=== PATIENT | female | born 1965 ===

== ENCOUNTER 2016-09-27 07:26 | Day surgery (SDC) | payer OTHER ==
[2016-09-25 13:11] VITALS: BMI 31.2
[2016-09-27] MEDS ORDERED: Propofol 10 mg/ml Inj (20 ML) ONE (09:03)
[2016-09-27] MEDS ORDERED: Lactated Ringer's 500 ML IV ONE ×2 (09:10)
[2016-09-27] MEDS ORDERED: Lactated Ringer's 500 ML IV SCH (09:15)
[2016-09-27 09:58] VITALS: TEMP 97; O2SAT 99
[2016-09-27 10:57] VITALS: BP 98/60; PULSE 60; RESP 20
== END 2016-09-27 10:30 | disposition home or self-care (01) ==
LOC: C.ENDO 07:26
PROVIDERS: ATTEND Internal Medicine Gastroenterology
DX: D12.4 Benign neoplasm of descending colon (principal); K57.30 Diverticulosis of large intestine without perforation or abscess without bleeding
CPT/HCPCS: 45385; 82948; 84703; 88305; J2704; J7120